=== PATIENT | female | born 1955 | race Caucasian/White ===

== ENCOUNTER 2018-07-09 05:44 | Day surgery (SDC) | payer BC ==
--- NOTE | 2018-07-08 22:43 | GHP ---
DATE OF ADMISSION: 07/09/2018 DATE OF SURGERY: Slated for 07/09/2018. SERVICE: Gynecology. PREOPERATIVE HISTORY: The patient is a 62-year-old white female, 2, para 2, with postmenopau smitha bleeding and a thickened endometrial lining noted on ultrasound. The patient has been on hormone replacement and has had periodic bleeding over the last couple years. The patient had an ultrasound in 2016 after she had periodic bleeding off and on since 2015. An ultrasound then showed the endome trial lining 0.76 with possible polyp. The patient's hormone replacement was decreased and her bleed ing discontinued. She had onset again of postmenopausal bleeding in early April with heavy flow. An ultrasound showed an endometrial thickness of 1.25 cm with an area suspicious for polyp. An endometr ial biopsy was performed, which showed a small amount of inactive endometrium. The patient felt anot her pretty heavy episode of bleeding and thought possibly a polyp had passed, and a repeat ultrasound again showed a continued thickened lining over 0.9 cm with an area in the fundus consistent with eddie yp. The patient has a questionable arcuate shaped uterus with the larger endometrium in the right co rnua, approximately 1 cm. The patient also has multiple fibroids, the largest of which is submucosal at 2.8 cm in the mid body. Bilaterally, the ovaries are normal. Patient is advised, due to the con tinued thickened endometrium and persistent periodic postmenopausal bleeding, to pursue removal of th is tissue for confirmation. Risks and benefits of them discussed with the patient and the consent fo rm signed. PAST MEDICAL HISTORY: Negative. PAST SURGICAL HISTORY: Appendectomy in 2000, hysteroscopy in 2012. PAST OBSTETRIC HISTORY: In March 1996, a vaginal delivery of a viable male at term. In October 1997, a vaginal delivery of a viable female. ALLERGIES: The patient has no known drug allergies. CURRENT MEDICATIONS: Vivelle Dot patch at 0.05 mg twice weekly, Prometrium 100 mg p.o. at bedtime, v itamin D, calcium. PAST DIRECTOR OF PATIENT FINANCIAL SERVICES HISTORY: Patient with no history of PID or STDs. Pap smear in July 2016 negative, wit h negative HPV. 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 The patient is a nonsmoker. Infrequent alcohol use, and no drug use. PHYSICAL EXAM: VITAL SIGNS: The patient is clinically afebrile. Weight 163 pounds. Blood pressure 112/70. GENERAL: The patient is a well-developed, well-nourished white female in no physical distre ss. HEENT: Shows no thyromegaly. No adenopathy. The oropharynx is clear. LUNGS: Clear to auscul tation bilaterally. CARDIOVASCULAR: Regular rate and rhythm. ABDOMEN: Nontender. PELVIC: Shows normal external genitalia. Cervix appears normal with no polyp. Uterus is small and nontender. No adnexal masses. ASSESSMENT: Postmenopausal bleeding on hormone replacement with an area of thickened endometrium in the fundus. Negative endometrial biopsy. PLAN: Will proceed with more definitive evaluation with hysteroscopy and removal of a polyp if found or dilatation and curettage. /[id number]/MODL
[2018-07-09] MEDS ORDERED: ceFAZolin 2 GM/DEXTROSE 100 ML IV ONE (06:08)
[2018-07-09] MEDS ORDERED: LIDOCAINE 1% 2 ML INJ ID PRN (06:12)
[2018-07-09] MEDS ORDERED: LR 1,000 ML IV ONE (06:12)
--- NOTE | 2018-07-09 07:05 | PDANEPAE ---
ANE History of Present Illness hysteroscopy ANE Past Medical History - Cardiovascular History Hx Hypertension: No Hx Arrhythmias: No Hx Chest Pain: No Hx Coronary Artery / Peripheral Vascular Disease: No Hx CHF / Valvular Disease: No Hx Palpitations: No - Pulmonary History Hx COPD: No Hx Asthma/Reactive Airway Disease: No Hx Recent Upper Respiratory Infection: No Hx Oxygen in Use at Home: No Hx Sleep Apnea: No Sleep Apnea Screening Result - Last Documented: Negative - Neurologic History Hx Cerebrovascular Accident: No Hx Seizures: No Hx Dementia: No - Endocrine History Hx Diabetes: No Hypothyroid: No Hyperthyroid: No - Renal History Hx Renal Disorders: No - Liver History Hx Hepatic Disorders: No - Neurological & Psychiatric Hx Hx Neurological and Psychiatric Disorders: No - Cancer History Hx Cancer: No - Congenital Disorder History Hx Congenital Disorders: No - GI History Hx Gastrointestinal Disorders: No - Other Health History Other Health History: HISTORY OF BILATERAL SHOULDER DISLOCATIONS- CAREFUL WITH TRANSFERRING - Chronic Pain History Chronic Pain: No - Surgical History Prior Surgeries: HYSTEROSCOPY & D&C 2012. APPENDECTOMY 2000. D&C 1997 ANE Review of Systems Review of systems is: negative Review of Systems: - Exercise capacity Exercise capacity: >=4 METS METS (RN): 6 METS ANE Patient History - Allergies Allergies/Adverse Reactions: No Known Allergies Allergy (Unverified 07/01/14 12:13) - Home Medications Home Medications: Estradiol Transdermal Patch 07/07/18 [Last Taken 07/08/18 20:00] Progesterone 100 mg 07/07/18 [Last Taken 07/09/18] - NPO status NPO Status: no food or drink >8 hours NPO Since - Liquids (Date): 07/08/18 NPO Since - Liquids (Time): 22:00 NPO Since - Solids (Date): 07/08/18 NPO Since - Solids (Time): 20:00 - Anes Hx Anes Hx: no prior problems - Smoking Hx Smoking Status: Never smoked - Alcohol Use Alcohol Use: Heavy (17/wk) - Family Anes Hx Family Anes Hx: none Family Hx Anesthesia Complications: NA ANE Labs/Vital Signs - Labs Result Diagrams: 07/09/18 06:25 - Vital Signs Vital Signs: reviewed preoperatively; see RN documention for details Blood Pressure: 130/81 Heart Rate: 65 Respiratory Rate: 16 O2 Sat (%): 96 Height: 175.26 cm Weight: 72.575 kg ANE Physical Exam - Airway Neck exam: FROM Mallampati Score: Class 2 Mouth exam: normal dental/mouth exam - Pulmonary Pulmonary: no respiratory distress - Cardiovascular Cardiovascular: regular rate and rhythym - ASA Status ASA Status: II ANE Anesthesia Plan Anesthesia Plan: GA w LMA
[2018-07-09] MEDS ORDERED: MIDAZOLAM 2 MG/2 ML VIAL IVP ONE (07:06)
[2018-07-09] MEDS ORDERED: PROPOFOL 200 MG/20 ML VIAL ONE (07:13)
[2018-07-09] MEDS ORDERED: LIDOCAINE 2% 100 MG/5 ML SYR ONE (07:13)
[2018-07-09] MEDS ORDERED: fentaNYL 100 MCG/2 ML INJ ONE ×3 (07:13→09:47)
--- NOTE | 2018-07-09 07:22 | PDHPUP ---
History & Physical Update H&P update statement: This history and physical update is based on an assessment of the patient which was completed after admission or registration (within 24 hours), but prior to the surgery/procedure. H&P update: no change in patient's condition since H&P completed
[2018-07-09 07:36] LABS: PLATELET COUNT 220 10^3/uL (150-400)
[2018-07-09] MEDS ORDERED: ONDANSETRON 4 MG/2 ML VIAL ONE ×2 (07:43→10:36)
[2018-07-09] MEDS ORDERED: KETOROLAC 30 MG/1 ML SDV ONE (07:43)
[2018-07-09] MEDS ORDERED: DEXAMETHASONE 4 MG/ML VIAL ONE (07:43)
[2018-07-09] MEDS ORDERED: NALOXONE HCL 0.4 MG/ML INJ IVP PRN (09:26)
[2018-07-09] MEDS ORDERED: HYDROmorphONE/DILAUDID 1 MG/ML INJ IVP PRN (09:26)
[2018-07-09] MEDS ORDERED: HYDROCODONE/APAP 5/325 TAB PO PRN (09:26)
[2018-07-09] MEDS ORDERED: oxyCODONE IR 5 MG TAB PO PRN (09:26)
[2018-07-09] MEDS ORDERED: ACETAMINOPHEN 500 MG TAB PO PRN (09:26)
[2018-07-09] MEDS ORDERED: ONDANSETRON 4 MG/2 ML VIAL IVP PRN (09:26)
[2018-07-09] MEDS ORDERED: PROMETHAZINE HCL 25 MG/ML INJ IVP PRN (09:26)
--- NOTE | 2018-07-09 09:26 | POSTANESTH ---
Post Anesthetic Evaluation Cardiovascular Status: Normal, Stable Respiratory Status: Normal, Stable Level of Consciousness/Mental Status: Can Participate in Eval Pain Control: Adequate, Prn Tx Ordered Nausea/Vomiting Control: Adequate, Prn Tx Ordered Complications Possibly Related to Anesthesia: None Noted
[2018-07-09] MEDS: fentaNYL 100 MCG/2 ML INJ IVP PRN ×3 (09:30→09:50)
--- NOTE | 2018-07-09 09:34 | POSTOPPROG ---
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 deficit of 1290ml with HSC. sharp currettage done on base. normal thin lining on mucosal surface. normal ostea. no evidence of perforation Specimen(s): polyp and fibroid morcellated and then currettings from base.
[2018-07-09] MEDS ORDERED: oxyCODONE IR 5 MG TAB ONE (10:05)
[2018-07-09 11:13] VITALS: BP 130/78
== END 2018-07-09 11:37 | disposition home or self-care (01) ==
LOC: FSGY 05:44
PROVIDERS: ATTEND Obstetrics & Gynecology
PROC: 0UB98ZX Excision of Uterus, Via Natural or Artificial Opening Endoscopic, Diagnostic (ICD-10-PCS; principal; 2018-07-09 07:15)
DX: N95.0 Postmenopausal bleeding (principal); D25.0 Submucous leiomyoma of uterus; Z79.818 Long term (current) use of other agents affecting estrogen receptors and estrogen levels
CPT/HCPCS: 58561; C1782; J0690; J1100; J1885; J2001; J2250; J2405; J2704; J3010